=== PATIENT | female | born 1950 | race Caucasian/White ===

== ENCOUNTER 2017-01-18 16:00 | Observation (INO) | payer OTHER ==
--- NOTE | 2017-01-18 18:33 | Diag Imaging Result Document ---
PROCEDURE NAME: NECK AP AND/OR LAT SOFT TISSUE - 01/18/2017 AP AND LATERAL SOFT TISSUE NECK: FINDINGS: There is no opaque foreign body identified. The epiglottis does not appear swollen. There is no subglottic narrowing identified. There is no precervical soft tissue swelling identified. There is degenerative disk disease with prominent anterior osteophyte noted at C4-5. There is partial fusion of the C7-T1 disk joint. IMPRESSION: 1. No visible opaque foreign body. 2. Cervical spine degenerative disease. 3. Partial fusion at C7-T1. [facility]
--- NOTE | 2017-01-18 18:57 | PROVIDER DOCUMENTATION ---
HPI-General Adult - General Chief Complaint: Foreign Body/Throat Stated Complaint: FOREIGN OBJECT Time Seen by Provider: 01/18/17 18:16 Allergies/Adverse Reactions: Patient Allergies Allergy/AdvReac Type Severity Reaction Status Date / Time Penicillins Allergy ANAPHYLAXIS Verified 01/18/17 18:36 Home Medications: Home Medication List Medication Instructions Recorded Confirmed Last Taken Type ATORVAstatin [Lipitor] 20 mg PO QHS 01/18/17 01/18/17 01/17/17 22:00 History Alendronate Sodium 35 mg PO DAILY 01/18/17 01/18/17 Unknown History Ciprofloxacin [Cipro] 250 mg PO BID 01/18/17 01/18/17 01/18/17 07:30 History - History of Present Illness -Gen Adult Nature of Presenting Problems: A 66 y/o F who presented after she accidentally swallowed chicken bone, felt foreign body sensation, tried self induced vomiting without success, can able to swallow her saliva and water, denies CP/SOB/n/v/d/mann/abdominal pain Review of Systems - Adult - REVIEW OF SYSTEMS - ADULT Constitutional: reports: no symptoms reported Eyes: reports: no symptoms reported Ears, Nose, Mouth & Throat: reports: no symptoms reported Cardiovascular: reports: no symptoms reported Respiratory: reports: no symptoms reported Gastrointestinal: reports: see HPI Genitourinary: reports: no symptoms reported Musculoskeletal: reports: no symptoms reported Integumentary: reports: no symptoms reported Neurological: reports: no symptoms reported Psychiatric: reports: no symptoms reported Endocrine: reports: no symptoms reported Hematologic/Lymphatic: reports: no symptoms reported Allergic/Immunologic: reports: no symptoms reported All Other Systems: Reviewed and Negative Past History - Adult - PAST MEDICAL HISTORY-ADULT Review of Records: reports: Old Records Reviewed, Nursing Assessment Review, Medications Reviewed, Social history reviewed & non-contributory. Major Childhood Illnesses: reports: denies history Cardiovascular: reports: denies history Respiratory: reports: denies history Gastrointestinal: reports: denies history Obstetrical/Gynecological: reports: denies history Genitourinary: reports: denies history Musculoskeletal: reports: denies history Neurological: reports: denies history Endocrine/Immune: reports: denies history Other Conditions: reports: denies history - FAMILY HISTORY Family History: reviewed, not pertinent Physical Exam-General - PHYSICAL EXAM-ADULT Initial Vital Signs Reviewed: Yes - CONSTITUTIONAL General Appearance: appears well, alert, no apparent distress - EYES Eyes: PERRL/EOMI, pink conjunctivae - HEAD, EARS, NOSE, MOUTH & THROAT HENMT: normocephalic/atraumatic, moist mucous membranes, normal ENT inspection - NECK Neck: non-tender, full range of motion - RESPIRATORY Respiratory: chest non-tender, lungs clear, normal breath sounds, no pleuratic chest pain, no respiratory distress, no accessory muscle use - CARDIOVASCULAR Cardiovascular: normal peripheral pulses, regular rate, rhythm, no edema, no gallop, no JVD, no murmur - GASTROINTESTINAL (ABDOMEN) Abdominal Exam: normal bowel sounds, non tender, soft - MUSCULOSKELETAL Back Exam: normal inspection Extremity: normal range of motion, non-tender, normal gait, normal inspection - SKIN Integumentary: normal color, normal turgor - NEUROLOGIC 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 nml as tested - PSYCHIATRIC Psych/Mental Status: normal mood/affect Progress - PLAN OF CARE/RESULTS Progress/Plan/Lab Results: Orders Category Date Time Status NECK AP AND/OR LAT SOFT TISSUE [RAD] Stat Exams 01/18/17 16:27 Draft CBC WITH NO DIFF [HEME] Stat Lab 01/18/17 18:48 Uncollected COMPREHENSIVE METABOLIC PANEL [CHEM] Stat Lab 01/18/17 18:48 Uncollected PROTIME WITH INR [COAG] Stat Lab 01/18/17 18:48 Uncollected Vital Signs Temp Pulse Resp BP Pulse Ox 01/18/17 16:23 98.3 F 77 18 156/76 100 Penicillins Allergy (Verified 01/18/17 18:36) ANAPHYLAXIS ATORVAstatin [Lipitor] 20 mg PO QHS 01/18/17 Alendronate Sodium 35 mg PO DAILY 01/18/17 Ciprofloxacin [Cipro] 250 mg PO BID 01/18/17 - XRAY 1 XRAY Study: other (neck) Impression: See EMR Report - CONSULTS/PCP/HOSPITALIST Notification #1 *Consult/PCP/Hospitalist*: Dr MAYER Time Discussed: 18:54 Consult Disposition: Admit #2 Consult: Dr Aguilar(GI) Reason/Comments: admission for monitoring and he will see her in AM Consult Disposition: Admit Departure - Departure Time of Disposition Order: 18:55 DIAGNOSIS: Foreign body in esophagus Qualifiers: Encounter type: initial encounter Qualified Code(s): T18.108A - Unspecified foreign body in esophagus causing other injury, initial encounter Disposition: ADMITTED INPATIENT 09 Certified Medical Emergency: Emergent Condition: Good
[2017-01-18 19:30] LABS: HEMATOCRIT 43.3 % (37.0-47.0); HEMOGLOBIN 14.3 g/dL (12.0-16.0); MCH 30.8 PG (27-31); MCV 93.1 FL (81-99); MPV 12.4 FL (7.4-10.4); RBC 4.65 XMIL (4.2-5.4)
[2017-01-18 19:39] LABS: AGAP 14; ALBUMIN 4.3 g/dL (3.5-5.0); ALKALINE PHOSPHATASE 76 U/L (32-104); BUN 15 mg/dL (8-22); CHLORIDE 100 mmol/L (98-107); COSMO 281; GOT 22 U/L (10-30); GPT 30 U/L (10-36); POTASSIUM 3.8 mmol/L (3.5-5.1); SODIUM 140 mmol/L (136-145); TCO2 26 mmol/L (25-35); TOTAL BILIRUBIN 0.23 mg/dL (0.20-1.00); TOTAL PROTEIN 7.1 g/dL (6.3-8.3)
[2017-01-18 19:50] LABS: INR 0.98
[2017-01-18] MEDS ORDERED: SODIUM CHLORIDE 0.9% INJ SCH (22:54)
[2017-01-18] MEDS ORDERED: ZOFRAN IV PRN (22:54)
[2017-01-18] MEDS ORDERED: NS 1,000 ML IV SCH (22:54)
[2017-01-18] MEDS ORDERED: DEMEROL IV PRN (22:54)
[2017-01-18] MEDS ORDERED: PROTONIX IV SCH (22:54)
--- NOTE | 2017-01-18 23:52 | HISTORY AND PHYSICAL ---
PRIMARY CARE PROVIDER: Corby Camarillo MD CHIEF COMPLAINT: Foreign body in her throat. HISTORY OF PRESENT ILLNESS: Ms. Lopez is a 66-year-old female who except for some hyperlipidemia is otherwise healthy. She reported that this afternoon at approximately 4:30, she was cooking some chicken. She stated that she put a bite of chicken in her mouth, went to swallow it, and immediately realized that it felt as though she had swallowed a chicken bone. The patient states that at home she did try drinking water, even tried eating a piece of bread to get it to pass on down, though these attempts were unsuccessful. The patient did present to the ER [facility] at approximately 1600 for further treatment of her foreign body. In the ER, they did do a soft tissue neck which showed no subglottic narrowing identified. There was no precervical soft tissue swelling identified. No visible patent foreign body. Dr. Valente, ER physician, did consult Dr. Santana and, at this time the patient will be admitted for further treatment and evaluation of her foreign body. The patient at this time denies any shortness of breath or respiratory difficulty. She does report some discomfort in her throat and also states it feels like she has a very sore throat as well. She denies any nausea or vomiting. The patient also denies headache, dizziness, chest pain, shortness of breath, abdominal pain, nausea, vomiting, diarrhea, dysuria, urinary frequency or pain, numbness or tingling in extremities. She does report that currently she is taking antibiotic, Cipro, for a urinary tract infection. The patient reports that she has had this urinary tract infection since December and this is currently the third antibiotic that she has been placed on for treatment of this. She is supposed to follow up with her doctor as well as a urologist for further treatment and evaluation after she has finished this round of antibiotics. REVIEW OF SYSTEMS: A 14-point review of systems was conducted with the patient and all were negative except for pertinent positives mentioned in the above HPI. PAST MEDICAL HISTORY: 1. Hyperlipidemia. 2. Recent urinary tract infection for which she is currently being treated for with Cipro. PAST SURGICAL HISTORY: Hysterectomy. SOCIAL HISTORY: The patient denies any past or present tobacco, alcohol or illicit drug use. FAMILY HISTORY: Positive for her mother having a history of dementia and she 3 years ago. Her father she reports in the secondary to pancreatic cancer. She does have one sister who has a history of high blood pressure. There is history of heart disease and diabetes mellitus in other family members. ALLERGIES: The patient reports allergies to penicillin. HOME MEDICATIONS: 1. Alendronate 35 mg once weekly. 2. Lipitor 20 mg p.o. at nighttime. 3. Cipro 250 mg p.o. b.i.d. DIAGNOSTIC DATA AND LABORATORY RESULTS: White blood cell count 7.3, hemoglobin 14.3, hematocrit 43.3. PT 10, INR 0.9. Sodium 140, potassium 3.8, chloride 100, bicarb 26, BUN 15, creatinine 0.8, glucose 105, calcium 10. Liver function tests are within normal limits. Soft tissue x-ray of the neck showed no subglottic narrowing or precervical soft tissue swelling. There was no visible patent foreign body noted. There is cervical spine diagnostic disease and a partial fusion at C7 through T1. PHYSICAL EXAMINATION: VITAL SIGNS: Temperature 98.1. Heart rate 81. Respirations 20. Blood pressure is 136/84. Oxygen saturation is 99% on room air. GENERAL: The patient is an well nourished, well developed, pleasant, 66-year-old female who is resting comfortably on the ER stretcher. She was in no acute distress, was awake, alert, and able to answer all questions appropriately. HEENT: Head is atraumatic, normocephalic. Pupils are equal, round, reactive to light, 3 mm bilaterally, and brisk. Oral mucosa is slightly dry. Oropharynx is clear. NECK: Supple. Trachea midline. CARDIOVASCULAR: Normal S1, S2. No murmurs, gallops or rubs appreciated. Regular rate and rhythm. PULMONARY: The patient has symmetrical chest expansion bilaterally. Lung sounds were clear to auscultation in bilateral full marcos. No stridor noted upon examination. ABDOMEN: The abdomen is soft, nontender, nondistended. Bowel sounds were present in all four quadrants, were normoactive. EXTREMITIES: No clubbing, cyanosis or edema noted. Pulse, motor and sensory were intact in all extremities. Pedal pulses are 3+ bilaterally. INTEGUMENTARY: The patient's skin is pink, warm, dry and intact. No lesions or sores noted. NEUROLOGIC: Patient alert and oriented x3. Cranial nerves II through XII are grossly intact. ASSESSMENT AND PLAN: 1. Esophageal foreign body. At this time, we will place the patient n.p.o. We will provide hydration with normal saline at 85 mL per hour. We will treat her pain with Demerol 12.5 mg IV every 4 hours and will provide Zofran as needed for nausea. We have consulted Dr. Santana with Gastroenterology and will await his evaluation and further recommendations. The patient did note that she did have one similar episode to this approximately 4 years ago, though was able to resolve this at home without needing any further treatment. 2. Hyperlipidemia. At this time, since the patient is n.p.o. for gastroenterology evaluation, we will hold her Lipitor at this time. 3. Urinary tract infection. The patient reports that she was previously being treated for this and is currently taking Cipro prescribed by Dr. Corby Camarillo for this. Given that the patient is n.p.o. at this time, we will hold her next dose of this at this time and will continue this once she is able to tolerate oral liquids and medications. The patient will be placed on the medical floor with telemetry. She will have vital signs every 6 hours. DVT prophylaxis will be provided with SCDs. GI prophylaxis will be provided with Protonix 40 mg IV every 24 hours. We have placed an order for an EKG in the morning and will await Gastroenterology's evaluation and recommendations. Further orders and recommendations pending hospital course, diagnostic studies, and physician evaluation. Dictated by SARAH Ramirez for Nagi Nunez MD
[2017-01-19 06:59] LABS: AGAP 11; BUN 14 mg/dL (8-22); CALCIUM 8.7 mg/dL (8.8-10.2); CHLORIDE 104 mmol/L (98-107); COSMO 279; POTASSIUM 3.8 mmol/L (3.5-5.1); SODIUM 140 mmol/L (136-145); TCO2 25 mmol/L (25-35)
--- NOTE | 2017-01-19 11:28 | Diag Imaging Result Document ---
PROCEDURE NAME: ABDOMEN FLAT/UPRIGHT - 01/19/2017 FLAT AND UPRIGHT ABDOMEN, TWO VIEWS: FINDINGS: No free air beneath the diaphragm. There is stool throughout the colon. The bowel loops are not dilated. No organomegaly. No abnormal abdominal calcifications. IMPRESSION: Constipation. I do not identify a chicken bone. However, sometimes these are not as dense and thus could be present and not be seen.
[2017-01-19 11:52] VITALS: BP 109/77
[2017-01-19] MEDS ORDERED: MIRALAX PO SCH (21:00)
--- NOTE | 2017-01-20 15:19 | EKG Report ---
Test Performed on : 01/19/2017 06:07:01 AM Test Reason : Esophageal Foreign Body, Surgical Patient Blood Pressure : / mmHG Vent. Rate : 067 BPM Atrial Rate : 067 BPM P-R Int : 134 ms QRS Dur : 076 ms QT Int : 422 ms P-R-T Axes : 061 069 047 degrees QTc Int : 445 ms Normal sinus rhythm. Normal ECG No previous ECGs available Unconfirmed Result
== END 2017-01-19 12:45 | disposition home or self-care (01) ==
LOC: ED 16:00 → EDIPHOLD 22:24
PROVIDERS: ATTEND Internal Medicine
DX: T18.128A Food in esophagus causing other injury, initial encounter (principal); M47.812 Spondylosis without myelopathy or radiculopathy, cervical region; Z98.1 Arthrodesis status; E78.5 Hyperlipidemia, unspecified; N39.0 Urinary tract infection, site not specified; Z79.899 Other long term (current) drug therapy; Z81.8 Family history of other mental and behavioral disorders; Z80.8 Family history of malignant neoplasm of other organs or systems; Z83.3 Family history of diabetes mellitus; Z82.49 Family history of ischemic heart disease and other diseases of the circulatory system
CPT/HCPCS: 36415; 70360; 74020; 80048; 80053; 82948; 85027; 85610; 93005; 96374; C9113; J2175; J2405; J7030; S0164